=== PATIENT | female | born 1985 | race Caucasian/White ===

== ENCOUNTER 2016-11-02 20:38 | Emergency (ER) | payer SELFPAY ==
[~2016-11-02] VITALS: Ht 162.6 cm; Wt 77.5 kg
[2016-11-02 20:49] VITALS: Ht 162.6 cm; Wt 77.5 kg
--- NOTE | 2016-11-02 23:13 | ERD ---
ER Documentation Chief Complaint Date/Time DATE: 11/02/16 TIME: 23:08 Chief Complaint right vaginal swelling/pain. hx of bartholin cyst HPI 31-year-old female presented emergency department for right vaginal swelling and pain for 2 days. During history taking patient stated that she has this for about 10 years and it has been on and off. Stated that she was previously referred to a specialist by her primary care provider but she has not found one yet. Stated that she is anxious about this. Also reports burning on urination. She sexually active with her significant other only. Her significant other has no symptoms. Denies headache, loss of consciousness, dizziness, blurry vision, changes in vision, photophobia, facial pain, ear pain, throat pain, difficulty swallowing, neck pain, shoulder pain, chest pain, cough, hemoptysis, abdominal pain, back pain, loss of appetite, nausea, vomiting, hematochezia, diarrhea, constipation, urinary symptoms, vaginal bleeding, vaginal discharge, , the possibility of being , bladder and bowel incontinences, extremity weakness, extremity tenderness, numbness or tingling sensation, difficulty walking, recent travel, recent exposure to illness, recent antibiotic use in the last 3 months, fever, chills. LMP: October 10, 2016. A0. No known drug allergies. Past medical history of Bartholin's cyst. Surgical history: Stated that she had a tube to her Bartholin cyst to drain abscess. Not taking any prescription medication at home. Social history: Not working at this time. Denies smoking, use of alcohol, use of illegal drugs. ROS All systems reviewed and are negative except as per history of present illness. Medications Home Meds Active Scripts Doxycycline Hyclate* (Doxycycline Hyclate*) 100 Mg Tablet.dr, 100 MG PO BID for 10 Days, TAB Prov:TL MCGILL 11/03/16 Allergies Allergies: Coded Allergies: No Known Drug Allergies (Verified Allergy, Unknown, 11/02/16) PMhx/Soc Medical and Surgical Hx: pt denies Medical Hx, pt denies Surgical Hx History of Surgery: No Anesthesia Reaction: No Hx Neurological Disorder: No Hx Respiratory Disorders: No Hx Cardiac Disorders: No Hx Psychiatric Problems: No Hx Miscellaneous Medical Probl: Yes (Recurrent bartholin's abscess x10 years) Hx Alcohol Use: No Hx Substance Use: Yes Hx Tobacco Use: Yes Smoking Status: Current every day smoker Physical Exam Vitals Physical Exam CONSTITUTIONAL: Well-appearing; well-nourished; in no apparent distress. HEAD: Normocephalic; atraumatic. EYES: Conjunctiva clear, sclera non-icteric, EOM intact. PERRL Ears: Hearing intact. EACs clear, TMs non-bulging, non-inflamed, translucent & mobile, ossicles normal appearance, No obstructions, no erythema, no discharges Nose: No obstructions. No polyps. No external lesions. Mucosa non-inflamed. No external lesions, septum and turbinates normal. No rhinorrhea. No discharges. Frontal sinus is non-tender to palpation. Maxillary sinus is non-tender to palpation. MOUTH: Moist mucous membranes, no lesion, no obstructions, no vesicles, no thrush, patent airway Throat: Uvula in midline. Right tonsil is +1 with no erythema, no exudate. Left tonsil is +1 with no erythema, no exudate. Tolerating secretions well. Good gag reflex. Patent airway. Neck: Supple, without lesions, bruits, or adenopathy. No mass. Thyroid non- enlarged and non-tender to palpation. CHEST: Symmetrical chest. Respirations even and not labored. No retractions noted. CARDIOVASCULAR: Normal S1, S2. RRR. No murmurs, gallops. RESPIRATORY: Normal chest excursion with respiration; breath sounds clear and equal bilaterally; no wheezes, rhonchi, or rales. Breathing even and unlabored. Speaking in clear, full, and complete sentences w/ ease. ABDOMEN: Normal bowel sounds normal. Soft, round, non-distended, non-guarding, no tenderness, no rebound, no organomegaly, no masses, no pulsating abdominal mass. No hernia. No peritoneal signs. : No CVA tenderness. BACK: Symmetrical shoulder. Spine is midline without deformity, tenderness. No evidence of trauma or deformity. PELVIS: Stable pelvis. No evidence of trauma or deformity. MUSCULOSKELETAL: Normal gait and station. No misalignment, asymmetry, crepitation, defects, tenderness, masses, effusions, decreased range of motion, instability, atrophy or abnormal strength or tone in the head, neck, spine, ribs , pelvis or extremities. No calf tenderness. NEUROVASCULAR: Distal pulses are present. Pedal pulse are present, equal, and normal. Capillary refills are < 2 seconds. NEUROLOGIC: Alert and oriented x4. Speaks full and clear sentences. Cranial Nerves II-XII normal. Sensation to pain, touch, and proprioception normal. Grossly unremarkable. No neurologic deficits. Romberg test is negative. PSYCHOLOGICAL: The patients mood and manner are appropriate. No hallucinations , delusions. Not SI. Not HI. Has the capacity to decide for self SKIN: Normal for age and ethnicity; warm; dry; good turgor; no apparent lesions or exudates. No rashes, hives, discoloration. Intact. Results 24 hrs Laboratory Tests Test 11/03/16 00:59 Urine Color LT. YELLOW Urine Clarity CLEAR Urine pH 6.5 Urine Specific Ronda 1.025 Urine Ketones NEGATIVE Urine Nitrite NEGATIVE Urine Bilirubin NEGATIVE Urine Urobilinogen 0.2 E.U./dL Urine Leukocyte Esterase NEGATIVE Urine Hemoglobin NEGATIVE Urine Glucose NEGATIVE% Urine Total Protein NEGATIVE Urine Test NEGATIVE Procedures/MDM Examination: Please see physical examination. Disease process, medical treatment was explained to the patient and family member. They verbalized understanding and agreed with the diagnostic tests, medical treatment, and follow-up care. POC urine : Negative. Urinalysis: Reviewed. Pelvic exam: External vagina anatomically intact without any abnormalities noted. Upon palpation and patient direction, there is no mass noted or Bartholin 's cyst noted. No tenderness to palpation. Left labia majora, urethra, right and left labia minora unremarkable. No CMT noted. Upon inspection with speculum , cervical OS visualized without erythema, discharge, bloody drainage. Vaginal wall intact without cystocele or rectocele noted. Patient tolerated procedure well without excessive bleeding, pain, or complication. Sheba Montgomery RN female systems technologist. Re-evaluation: Denies headache, dizziness, blurry vision, neck pain, shoulder pain, chest pain, abdominal pain, back pain, nausea, vomiting, vaginal pain, vaginal discharge, vaginal bleeding. No episode of emesis here in the emergency department. There is no right upper/right lower/left upper/left lower /epigastric tenderness and light and deep palpation. Negative Rovsing's sign. Negative [place] sign. No peritoneal signs. No CVA tenderness. No active bleeding. No neurovascular deficits. No neurological deficits. Consultation: None. Differential diagnosis: Bartholin's cyst Medical decision makin-year-old female presented emergency department for right vaginal swelling and pain for 2 days. During history taking patient stated that she has this for about 10 years and it has been on and off. Stated that she was previously referred to a specialist by her primary care provider but she has not found one yet. Stated that she is anxious about this. Also reports burning on urination. She sexually active with her significant other only. Her significant other has no symptoms. Patient's complaint, patient's history about her complaint, my physical findings are consistent with my final diagnosis of chronic Bartholin's cyst (not emergent at this time). Medications prescribed are the following: Doxycycline (prophylactically) Patient and family member are made aware of the side effects and adverse reactions of the medications prescribed. Instructed on when to seek emergent and medical attention in case allergic/anaphylactic reactions or severe side effects and or adverse reactions to medications. Patient and family member verbalized understanding. Patient instructed Instructed to follow-up with his PCP in 24-48 hours. PCP to refer patient to a signal constructor. Resources was provided to patient. Instructed to Call 911 for chest pain, shortness of breath. Advised to come back here in ED as soon as possible for severity of symptoms which includes but not limited to: any new symptoms; shortness of breath/difficulty of breathing; cardiovascular changes; severe gastrointestinal symptoms; signs and symptoms of bleeding and or infection; signs of compartment syndrome/neurovascular changes; neurological changes/deficits. Patient and family member verbalized understanding. Upon discharge, patient is alert and oriented x 4, speaks full and clear sentences, denies pain, has no neurological deficits, has no neurovascular deficits, difficulty of breathing. Breathing even and unlabored. Lung sounds are clear to auscultation. Not in distress. Appears comfortable. Ambulatory with steady gait. Appears satisfied with care provided here in ED. Departure Diagnosis: Primary Impression: UTI symptoms Condition: Stable Additional Instructions: Follow-up with her primary care physician the next 24-48 hours. PCP to refer patient to signal constructor and a surgeon for her chronic Bartholin's cyst. Hemodynamically stable on discharge. TL MCGILL November 02, 2016 23:13 TL MCGILL November 02, 2016 23:13 TL MCGILL November 02, 2016 23:13
[2016-11-03] MEDS ORDERED: DOXY100T20 PO (01:19)
[2016-11-03 01:49] VITALS: BP 127/84; PULSE 80; RESP 20; TEMP 98.6
[2016-11-03 02:02] LABS: ADD UMIC NO; UR BILIRUBIN (Dip) NEGATIVE (NEGATIVE); UR BLOOD (Dip) NEGATIVE (NEGATIVE); UR CLARITY CLEAR (CLEAR); UR COLOR LT. YELLOW (YELLOW); UR GLUCOSE (Dip) NEGATIVE (NEGATIVE); UR KETONES (Dip) NEGATIVE (NEGATIVE); UR LEUKOCYTE ESTERASE (Dip) NEGATIVE (NEGATIVE); UR NITRITE (Dip) NEGATIVE (NEGATIVE); UR TOTAL PROTEIN (Dip) NEGATIVE (NEGATIVE); UR UROBILINOGEN (Dip) 0.2 E.U./dL (0.1-1.0)
== END 2016-11-03 01:50 | disposition home or self-care (01) ==
LOC: FTE 20:38
DX: R39.89 Other symptoms and signs involving the genitourinary system (principal); F17.210 Nicotine dependence, cigarettes, uncomplicated
CPT/HCPCS: 81003; 84703; 87086; 99283